=== PATIENT | female | born 1980 | race Caucasian/White ===

== ENCOUNTER 2024-07-30 01:27 | Emergency (ER) | payer OTHER ==
[~2024-07-30] VITALS: Ht 167.6 cm; Wt 75.4 kg
[2024-07-30 02:08] LABS: BILIRUBIN, URINE NEGATIVE (negative); BLOOD/HGB, URINE NEGATIVE (Negative); KETONE, URINE NEGATIVE (Negative); LEUK ESTERASE, URINE NEGATIVE (negative); NITRITE, URINE NEGATIVE (negative); PH, URINE 5.5 (5-7)
[2024-07-30 02:13] LABS: BACTERIA, URINE RARE /hpf (negative); CASTS, URINE NONE SEEN \\lpf; COLLECTION TYPE, URINE CLEAN CATCH; CRYSTALS, URINE NONE SEEN (0-1+); EPITHELIAL CELLS, URINE SQUAMOUS 4+ /lpf (0-1+); RED BLOOD CELLS, URINE 0-1 /hpf (0-5); REFLEX CULTURE, URINE No (No)
[2024-07-30 02:23] LABS: AMPHETAMINES, URINE POSITIVE (NEGATIVE); BARBITURATES, URINE NEGATIVE (NEGATIVE); BENZODIAZEPINE, URINE NEGATIVE (NEGATIVE); BUPRENORPHINE, URINE NEGATIVE (NEGATIVE); CANNABINOID, URINE POSITIVE (NEGATIVE); COCAINE, URINE NEGATIVE (NEGATIVE); ECSTASY, URINE POSITIVE (NEGATIVE); FENTANYL, URINE POSITIVE (NEGATIVE); METHADONE, URINE NEGATIVE (NEGATIVE); OPIATES, URINE NEGATIVE (NEGATIVE); OXYCODONE, URINE NEGATIVE (NEGATIVE); PHENCYCLIDINE, URINE NEGATIVE (NEGATIVE)
[2024-07-30] MEDS ORDERED: NICOTINE 21 MG/24 HR 1 EA TDSY TD SCH (09:47)
[2024-07-30 10:10] VITALS: BP 121/101
== END 2024-07-30 10:18 | disposition other institution, planned readmission (95) ==
LOC: ED 01:27
PROVIDERS: Family Medicine
DX: R45.851 Suicidal ideations (principal); T50.905A Adverse effect of unspecified drugs, medicaments and biological substances, initial encounter
CPT/HCPCS: 80053; 80307; 81001; 84443; 84703; 85025; 99285; G0480

== ENCOUNTER 2025-01-11 10:18 | Emergency (ER) | payer OTHER ==
[~2025-01-11] VITALS: Ht 167.6 cm; Wt 89.0 kg
[2025-01-11] MEDS ORDERED: ADVIL100 M1 PO (10:44)
[2025-01-11] MEDS ORDERED: MAPAP500 MG PO (10:44)
[2025-01-11] MEDS ORDERED: ZANAFLEX2 M1 PO (10:46)
[2025-01-11 12:24] VITALS: BP 121/78
== END 2025-01-11 12:20 | disposition home or self-care (01) ==
LOC: ED 10:18
DX: M25.562 Pain in left knee (principal); M25.532 Pain in left wrist; Z79.899 Other long term (current) drug therapy
CPT/HCPCS: 73110; 73560; 99283